=== PATIENT | female | born 1950 | race Caucasian/White ===

== ENCOUNTER 2016-12-27 05:25 | Day surgery (SDC) | payer BC ==
[~2016-12-27 05:25] MED LIST: ABILIFY10 PO; ABILIFY5 PO; ARMOUR THYRO60 MG PO; ASAB PO; BACTROINT TOP; BLACK COHOSH; CELEXA20 PO; CENESTIN0.3 MG PO; CENESTIN1.25 MG OR; CENESTIN1.25 MG PO; CO Q-10100 MG PO; COQ10100 MG PO; CORTISPORIN11 OT; CYMBALTA; CYMBALTA30 PO; CYMBALTA60 PO; DEPAK250ER PO; DEPAKOT250 PO; DEPAKOT500 PO; DOLOGESIC OR; ESTROVEN OTC PO; ESTROVEN TABLET PO; FISH-EPA1000 MG PO; FOLIC PO; FROVA2.5 MG PO; GEODON20 PO; IMITREX100 MG PO; K500 PO; KDUR20 PO; KLONO2 PO; KLOR-CON 1010 MEQ PO; KLOR-CON M1010 MEQ PO; L20 PO; L40 PO; LEVOTHYROXIN100 MCG PO; LEVOTHYROXIN50 MCG PO; LEVOTHYROXIN88 MCG PO; LORTAB10 PO; LOTE10 PO; LUNESTA1 MG PO; LYRICA50 PO; MAX25 PO; MAXZIDE PO; METHOC500B PO; METHOC750B PO; MOBIC15 MG PO; MOVANTIK12.5 MG PO; NEUR300 PO; NEUR400 PO; NEUR600 PO; NEUR800 PO; NEXIUM PO; NEXIUM40 PO; NORCO1 TA1 PO; NORV5 PO; P20 PO; PCET PO; PHENTERMINE37.5 M1 OR; PR25 PO; PREV30 PO; PROZAC PO; REFRESH OPH SO0.3 ML OPH; ROXICODONE15 MG PO; SIN25 PO; SKELAXIN8 PO; SUCR PO; SYN1 PO; SYN88 PO; TOPAMAX100 PO; TOPAMAX50 MG PO; TRAZ50 PO; ULTRAM50 PO; VALIUM10 MG PO; VALTREX1 GM PO; VITAMIN D1000 UNI1 PO; VITAMIN D3; VITAMIN D31000 UNIT PO; Z300 PO; ZIAC10 PO; ZOCOR20 PO; ZOMIG5 MG PO; [UNRECOGNIZED DRUG - OTHER] PO
== END 2016-12-27 07:44 | disposition home or self-care (01) ==
LOC: SDC 05:25
PROVIDERS: Orthopaedic Surgery
PROC: 3E0S3BZ Introduction of Anesthetic Agent into Epidural Space, Percutaneous Approach (ICD-10-PCS; 2016-12-27)
PROC: 3E0S33Z Introduction of Anti-inflammatory into Epidural Space, Percutaneous Approach (ICD-10-PCS; principal; 2016-12-27 09:15)
DX: M54.16 Radiculopathy, lumbar region (principal); E78.00 Pure hypercholesterolemia, unspecified; M19.90 Unspecified osteoarthritis, unspecified site; M10.9 Gout, unspecified; K21.9 Gastro-esophageal reflux disease without esophagitis; E03.9 Hypothyroidism, unspecified; F41.9 Anxiety disorder, unspecified; F32.9 Major depressive disorder, single episode, unspecified; G43.909 Migraine, unspecified, not intractable, without status migrainosus; I10 Essential (primary) hypertension; I25.2 Old myocardial infarction; Z91.040 Latex allergy status; Z88.5 Allergy status to narcotic agent; Z91.09 Other allergy status, other than to drugs and biological substances; Z79.899 Other long term (current) drug therapy; Z79.891 Long term (current) use of opiate analgesic; Z98.1 Arthrodesis status; Z90.49 Acquired absence of other specified parts of digestive tract; Z90.710 Acquired absence of both cervix and uterus; Z96.651 Presence of right artificial knee joint; Z98.890 Other specified postprocedural states; Z90.89 Acquired absence of other organs
CPT/HCPCS: 73030-LT; 73080-LT; 73110-LT; 99284; J1040; J2250; J3010; Q9967